=== PATIENT | male | born 1950 | race Caucasian/White ===

== ENCOUNTER 2017-08-27 04:52 | Day surgery (SDC) | payer OTHER, MEDICARE ==
[2017-08-11 10:03] VITALS: BMI 23.1
--- NOTE | 2017-08-27 10:37 | PREOP ---
DATE OF ADMISSION: 08/27/2017 DATE OF DICTATION: 07/15/2017 Patient to be admitted to the [facility] in the near future, date to be determined. HISTORY: A 67-year-old man admitted to the hospital for open repair of a left inguinal hernia with mesh. I had performed the patient's right inguinal hernia repair remotely in 2009. He presents now for open repair of a symptomatic left inguinal hernia. No underlying GI, genitourinary, or respiratory complaints to suggest further predisposition or information. The patient is status post radical prostatectomy and is not felt to be a good candidate for peritoneoscopic hernia surgery. The patient's past medical history is significant for hypertension, hypercholesterolemia. No history of heart disease, diabetes, respiratory or hepatic insufficiency. Past surgical history is significant for open radical prostatectomy 2006, right shoulder surgery 2004, open right inguinal hernia surgery 2009, right knee surgery 2011, left knee surgery 2014. ALLERGIES: None known. CURRENT MEDICATIONS: Labetalol, simvastatin. SOCIAL HISTORY: Negative tobacco. Negative alcohol. FAMILY HISTORY: Mother , history of colon cancer. (Patient's last colonoscopy 2014 approximately). REVIEW OF SYSTEMS: Otherwise nil. PHYSICAL EXAMINATION: Patient examined in erect and supine position. There is an obvious moderate-size, reducible left inguinal hernia. The right groin is intact. No evidence of recurrence. The testes are unremarkable. There is a device and valve in the scrotum which the patient uses to control his urinary incontinence. IMPRESSION: Symptomatic, reducible left inguinal hernia. PLAN: Open reduction and repair of left inguinal hernia with mesh. Indications, alternatives, and possible complications reviewed. Consent obtained. The patient was seen preoperatively by Dr. Aquilino Garcia of the medical service. Please refer to his notes for those details. The patient is strongly opting for surgery at [facility] in [place], as he lives in [place], despite being a patient of Dr. Garcia here in [place]. Additionally, it is difficult for his to travel outside that catchment area. GASPER RIVERO M.D. [id number] cc: Aquilino Garcia MD
[2017-08-27] MEDS ORDERED: ceFAZolin SODIUM 1 GM VIAL ONE (10:53)
[2017-08-27] MEDS ORDERED: BUPIVACAINE HCL/PF 0.5% (5MG/ML) 10 ML VIAL ONE (12:26)
[2017-08-27] MEDS ORDERED: DEXAMETHASONE SOD PHOSPHATE/PF 10 MG/ML SDV ONE (12:31)
[2017-08-27] MEDS ORDERED: ROPIVACAINE HCL 0.5% 30ML VIAL ONE (12:31)
[2017-08-27] MEDS ORDERED: MIDAZOLAM HCL 2 MG/2 ML SINGLE DOSE VIAL ONE ×2 (12:33)
[2017-08-27] MEDS ORDERED: fentaNYL CITRATE 250 MCG/5 ML VIAL ONE (12:50)
[2017-08-27] MEDS ORDERED: PROPOFOL 20 ML ONE (12:50)
[2017-08-27] MEDS ORDERED: DESFLURANE GAS 240 ML BOTTLE IH ONE (12:53)
[2017-08-27] MEDS ORDERED: ROCURONIUM BROMIDE 50 MG/5 ML VIAL ONE (13:00)
[2017-08-27] MEDS ORDERED: LIDOCAINE HCL/PF 2% SDV 5ML VIAL ONE (13:00)
[2017-08-27] MEDS ORDERED: ceFAZolin SODIUM 1 GM VIAL IVPB ONE (13:10)
--- NOTE | 2017-08-27 13:40 | HP ---
DATE OF ADMISSION: 08/27/2017 This is an updated history and physical. Since the previous dictation of July 15, 2017, there has been no significant change. HISTORY: This is a 67-year-old man who presents for open left inguinal hernia with mesh. He has had an open right inguinal hernia previously. He has had a radical prostatectomy, as well. He has also had placement of a device to aid in his urinary incontinence. No underlying GI, , or respiratory complaints to suggest further predisposition of hernia formation. Patient does have a history of hypertension and hypercholesterolemia. There has been no history of heart disease, respiratory or hepatic insufficiency. PAST SURGICAL HISTORY: As described above, and in addition, he has had knee surgery. ALLERGIES: None known. CURRENT MEDICATIONS: Labetalol, simvastatin. SOCIAL HISTORY: Negative for tobacco, negative for alcohol. FAMILY HISTORY: Mother has history of colon cancer, last colonoscopy 2014. REVIEW OF SYSTEMS: Nil. PHYSICAL EXAMINATION: Abdomen: Obvious moderate size reducible left inguinal hernia. Right groin intact, no evidence of recurrence. Testes unremarkable, mildly atrophic bilaterally. Palpable device at the level of the right hemiscrotum. IMPRESSION: Symptomatic, reducible left inguinal hernia, history of contralateral repair, history of prostate cancer. PLAN: Open reduction repair of left inguinal hernia with mesh. Indications, alternatives, possible complications were reviewed. Consent obtained. Patient is to be seen preoperatively by his PMD. Please refer to those notes for those medical details. GASPER RIVERO M.D. [id number] MTDD
[2017-08-27] MEDS ORDERED: GLYCOPYRROLATE 0.2 MG/1 ML VIAL ONE (14:08)
[2017-08-27] MEDS ORDERED: NEOSTIGMINE METHYLSULFATE 0.5 MG/ML - 10 ML MDV ONE (14:08)
[2017-08-27] MEDS ORDERED: BUPIVACAINE HCL/PF (5 MG/ML) 30 ML VIAL IJ ONE ×2 (14:11)
[2017-08-27] MEDS ORDERED: oxyCODONE HCL 5 MG TABLET PO PRN ×2 (14:19→14:24)
[2017-08-27] MEDS ORDERED: ONDANSETRON 4 MG/2 ML VIAL IVPUSH PRN (14:19)
[2017-08-27] MEDS ORDERED: LACTATED RINGERS SOLUTION 1,000 ML IV SCH (14:30)
[2017-08-27 15:14] VITALS: TEMP 97.6
[2017-08-27] MEDS ORDERED: LABETALOL HCL 5 MG/1 ML (100MG/20 ML VIAL) IVPUSH ONE (16:51)
[2017-08-27] MEDS ORDERED: oxyCODONE HCL 5 MG TABLET ONE (18:54)
[2017-08-27 19:48] VITALS: BP 147/96; PULSE 78
--- NOTE | 2017-08-28 13:50 | OP ---
DATE OF OPERATION: 08/27/2017 PREOPERATIVE DIAGNOSIS: Left inguinal hernia. POSTOPERATIVE DIAGNOSIS: Indirect left inguinal hernia. PROCEDURE: Open repair left inguinal hernia with mesh/intermediate wound closure (18 minutes). OPERATING SURGEON: Vargas Lindsey MD DEAN OF WOMEN: None. ANESTHESIA: Serge Pulido MD (general) HISTORY: This is a 67-year-old man who has had a contralateral right inguinal hernia repair. He also has a history of prior radical prostatectomy for carcinoma. He presents for open left inguinal hernia repair with mesh. Indications, alternatives, and possible complications were reviewed. Consent obtained. DESCRIPTION OF PROCEDURE: With the patient in the supine position, and after general anesthesia, the abdomen and left groin were prepped and draped in sterile fashion using chlorhexidine. An 8-cm left groin incision was between the left pubic tubercle and left anterior iliac spine. Incision was deepened into the subcutaneous space. All identified vessels in the subcutaneous space were clamped, divided, and ligated. The external oblique aponeurosis was identified and incised in the direction of its fibers through the external ring. The ilioinguinal nerve was identified and spared. The undersurface of the split external oblique aponeurosis was planed to the level of the pubic tubercle, at which point, a [place] drain was placed around the cord structures. The cord was then skeletonized of its cremasteric fibers. An indirect component was easily identified and mobilized free from its attachment to the remaining cord structures. Sac was mobilized to the level of the preperitoneal fat and inferior epigastric vessels. The sac was opened, found to contain no structures. It was transfixed at its base with 2-0 silk suture material x2. The sac was amputated and sent as specimen. Now directing our attention to the inguinal floor, the transversalis fascia was split throughout its entire length. The preperitoneal tissues were reduced. Davol plug was placed in the preperitoneal space and tacked in place circumferentially with 2-0 Prolene sutures. The transversalis fascia was imbricated in 2 layers over the Davol plug, leaving the Davol plug entirely in the preperitoneal space. This was accomplished with a continuous 2-0 Prolene suture beginning at the pubic tubercle, moving superiorly to recreate the internal ring and returning to the pubic tubercle. An overlying mesh was then fashioned about the entire inguinal floor and tacked in place circumferentially with 2-0 Prolene sutures. The mesh was keyholed superiorly, was wrapped around the plug buttressing the internal ring. The cord and ilioinguinal nerve were then returned to their anatomic positions. The overlying external oblique aponeurosis was closed in a continuous fashion using 3-0 Vicryl suture material. After adequate irrigation and hemostasis, the wound was closed in layers. Scarpas fascia was approximated with interrupted 3-0 chromic suture. Subcutaneous tissues were approximated with interrupted 3-0 plain sutures. Subcuticular layer was approximated using continuous 4-0 Biosyn suture. Prior to complete closure, 10 mL of 0.5% Marcaine was freely instilled in the wound. Dermabond applied. Procedure was terminated. NEEDLE AND INSTRUMENT COUNT: Correct. ESTIMATED BLOOD LOSS: Minimal. SPECIMENS: Hernia sac. DRAINS: None. IMPLANTS: Mesh plug. Patient tolerated the procedure. The procedure was terminated. Kirstin [id number] MTDD
== END 2017-08-27 19:05 | disposition home or self-care (01) ==
LOC: JASU-SURG 04:52
PROVIDERS: ATTEND Surgery
PROC: 0YU60JZ Supplement Left Inguinal Region with Synthetic Substitute, Open Approach (ICD-10-PCS; principal; 2017-08-27 12:00)
DX: K40.90 Unilateral inguinal hernia, without obstruction or gangrene, not specified as recurrent (principal)
CPT/HCPCS: 88302-TC; 94010

== ENCOUNTER 2020-04-25 11:56 | Emergency (ER) | payer OTHER, MEDICARE | END 2020-04-25 12:32 | disposition home or self-care (01) | LOC: JVIRT 11:56 | DX: Z03.818 Encounter for observation for suspected exposure to other biological agents ruled out (principal) | CPT/HCPCS: C9803; G2012-GT; U0003 ==

== ENCOUNTER 2021-01-21 10:50 | Observation (INO) | payer OTHER, MEDICARE ==
[2021-01-21] MEDS ORDERED: MECLIZINE HCL 25 MG TABLET (FP) PO ONE ×2 (11:52→15:44)
[2021-01-21] MEDS ORDERED: METOCLOPRAMIDE HCL INJECTION 10 MG/2 ML VIAL IVPB ONE (11:52)
[2021-01-21] MEDS ORDERED: LACTATED RINGERS SOLUTION 1000 ML INFUS.BAG IV ONE (11:52)
[2021-01-21] MEDS ORDERED: MECLIZINE HCL 25 MG TABLET (FP) ONE ×2 (11:57→15:52)
[2021-01-21] MEDS ORDERED: METOCLOPRAMIDE HCL INJECTION 10 MG/2 ML VIAL ONE (11:58)
[2021-01-21 12:13] LABS: BASO % 0.4 % (0-2.0); HEMATOCRIT 39.8 % (35.4-49); HEMOGLOBIN 13.4 GM/dL (11.7-16.9); LYMPH % 7.5 % (8-40); MCH 28.4 pg (25.7-33.7); MCHC 33.7 g/dl (32.0-35.9); MEAN CELL VOLUME 84.2 fl (80-96); MEAN PLT VOLUME 10.1 fl (7.5-11.1); MONO % 5.9 % (3.8-10.2); NEUT % 85.2 % (42.8-82.8); PLATELET COUNT 155 10^3/uL (134-434); RBC 4.72 M/mm3 (4.00-5.60); RDW 13.8 % (11.9-15.9); WHITE BLOOD COUNT 10.7 K/mm3 (4.0-10.0)
[2021-01-21 12:34] LABS: CHLORIDE 108 mmol/L (98-107); SODIUM 140 mmol/L (136-145)
[2021-01-21 12:37] LABS: ALBUMIN 3.8 g/dl (3.4-5.0); CALCIUM 9.6 mg/dL (8.5-10.1)
[2021-01-21 12:38] LABS: ANION GAP 3 MMOL/L (8-16); BLOOD UREA NITROGEN 22.1 mg/dL (7-18); CO2 30 mmol/L (21-32); GLUCOSE,RANDOM 122 mg/dL (74-106); LIPASE 146 U/L (73-393)
[2021-01-21 12:40] LABS: CHOLESTEROL 188 mg/dL (50-200); CREATININE 1.4 mg/dL (0.55-1.3); SGOT/AST 31 U/L (15-37); TRIGLYCERIDES 135 mg/dL (0-150)
[2021-01-21 12:41] LABS: BILIRUBIN,TOTAL 0.5 mg/dL (0.2-1); LDL CHOLESTEROL (ONLY SJRH) 113 mg/dL (5-100)
[2021-01-21 12:42] LABS: ALK PHOS 75 U/L (45-117); TOT PROT 7.8 g/dl (6.4-8.2)
[2021-01-21 12:43] LABS: HDL CHOLESTEROL 40 mg/dL (40-60)
[2021-01-21 13:09] LABS: SGPT/ALT 25 U/L (13-61)
[2021-01-21] MEDS ORDERED: diazePAM 5 MG TABLET PO ONE (13:45)
[2021-01-21 13:50] LABS: EPI CELLS 3 /uL (0-25.1); HYALINE CASTS 1 /uL (0-3.1); URINE APPEARANCE CLEAR; URINE BACTERIA 2 /uL (0-1359); URINE BILIRUBIN NEGATIVE (NEGATIVE); URINE COLOR YELLOW; URINE GLUCOSE (UA) NEGATIVE (NEGATIVE); URINE KETONE NEGATIVE (NEGATIVE); URINE LEUK ESTERASE NEGATIVE (NEGATIVE); URINE NITRITE NEGATIVE (NEGATIVE); URINE PROTEIN 1+ (NEGATIVE); URINE RBC 8 /uL (0-23.9); URINE UROBILINOGEN 0.2 mg/dL (0.2-1.0); URINE WBC 2 /uL (0-25.8)
[2021-01-21] MEDS ORDERED: diazePAM 5 MG TABLET ONE (14:01)
[2021-01-21] MEDS ORDERED: ONDANSETRON 4 MG/2 ML VIAL IVPUSH ONE (15:44)
[2021-01-21] MEDS ORDERED: ONDANSETRON 4 MG/2 ML VIAL ONE (15:52)
[2021-01-21] MEDS ORDERED: ASPIRIN 81 MG CHEWABLE TABLETS PO ONE (15:53)
[2021-01-21] MEDS ORDERED: ASPIRIN 81 MG CHEWABLE TABLETS ONE (16:02)
[2021-01-21] MEDS ORDERED: MECLIZINE HCL 25 MG TABLET (FP) PO PRN (17:03)
[2021-01-21] MEDS: predniSONE 20 MG TABLET (UD) PO SCH (19:30)
[2021-01-21] MEDS ORDERED: predniSONE 20 MG TABLET (UD) ONE (20:27)
[2021-01-22 04:01] VITALS: BMI 21.2
[2021-01-22 08:49] LABS: HEMOGLOBIN 12.9 GM/dL (11.7-16.9); MCH 28.3 pg (25.7-33.7); MEAN CELL VOLUME 83.3 fl (80-96); PLATELET COUNT 159 10^3/uL (134-434); RBC 4.57 M/mm3 (4.00-5.60); RDW 13.7 % (11.9-15.9); WHITE BLOOD COUNT 8.3 K/mm3 (4.0-10.0)
[2021-01-22 09:17] LABS: ALBUMIN 3.4 g/dl (3.4-5.0); BLOOD UREA NITROGEN 22.1 mg/dL (7-18); CALCIUM 8.9 mg/dL (8.5-10.1)
[2021-01-22 09:20] LABS: CREATININE 1.3 mg/dL (0.55-1.3)
[2021-01-22 09:22] LABS: BILIRUBIN,TOTAL 0.5 mg/dL (0.2-1)
[2021-01-22] MEDS ORDERED: ASPIRIN 81 MG CHEWABLE TABLETS PO SCH (10:00)
[2021-01-22] MEDS ORDERED: ENOXAPARIN NA (PORCINE) 40 MG/0.4 ML DISP.SYRIN SQ SCH (10:00)
[2021-01-22 11:06] LABS: ANISOCYTOSIS 1+; MACROCYTOSIS 0; PLATELET ESTIMATE DECREASED
[2021-01-22] MEDS: predniSONE 20 MG TABLET (UD) PO SCH (11:18)
[2021-01-22 15:47] VITALS: BP 154/87; PULSE 75; TEMP 98.2
== END 2021-01-22 17:37 | disposition home or self-care (01) ==
LOC: JER 10:50 → JERBED 15:57 → J4W 01-22 02:06
PROC: 3E023GC Introduction of Other Therapeutic Substance into Muscle, Percutaneous Approach (ICD-10-PCS; principal; 2021-01-21)
PROC: 3E033GC Introduction of Other Therapeutic Substance into Peripheral Vein, Percutaneous Approach (ICD-10-PCS; 2021-01-21)
PROC: 3E0337Z Introduction of Electrolytic and Water Balance Substance into Peripheral Vein, Percutaneous Approach (ICD-10-PCS; 2021-01-21)
DX: H81.10 Benign paroxysmal vertigo, unspecified ear (principal); I10 Essential (primary) hypertension; E78.5 Hyperlipidemia, unspecified; Z85.46 Personal history of malignant neoplasm of prostate; Z88.8 Allergy status to other drugs, medicaments and biological substances; Z29.9 Encounter for prophylactic measures, unspecified
CPT/HCPCS: 36415; 70450-TC; 70551-TC; 71045-TC-FY; 80053; 80061; 81003; 82550; 82553; 83036; 83690; 84443; 84484; 85025; 86780; 87086; 93005; 93010; 93880-TC; 96372; 96374; 96375; 97116-GP; 99285-25; C9803; G0378; U0003; U0005

== ENCOUNTER 2024-07-12 13:59 | Emergency (ER) | payer OTHER, MEDICARE ==
[2024-07-12 14:08] VITALS: BP 142/82; PULSE 65; RESP 16; TEMP 98.2; BMI 21.6
[2024-07-12] MEDS ORDERED: MECLIZINE HCL 25 MG TABLET (FP) PO ONE (14:41)
[2024-07-12] MEDS ORDERED: MECLIZINE HCL 25 MG TABLET (FP) ONE (15:09)
[2024-07-12] MEDS ORDERED: ONDANSETRON 4 MG/2 ML VIAL ONE (15:10)
[2024-07-12] MEDS: MECLIZINE HCL 25 MG TABLET (FP) PO ONE (15:18)
[2024-07-12] MEDS: LACTATED RINGERS SOLUTION 1000 ML INFUS.BAG IV ONE (15:19)
[2024-07-12] MEDS: ONDANSETRON 4 MG/2 ML VIAL IVPUSH ONE (15:19)
[2024-07-12 15:24] LABS: BASO % 0.5 % (0-2.0); EOS % 1.1 % (0-4.5); HEMATOCRIT 37.6 % (35.4-49); HEMOGLOBIN 12.4 GM/dL (11.7-16.9); LYMPH % 6.8 % (8-40); MCH 26.9 pg (25.7-33.7); MCHC 32.8 g/dl (32.0-35.9); MEAN PLT VOLUME 10.1 fl (7.5-11.1); MONO % 6.4 % (3.8-10.2); NEUT % 85.2 % (42.8-82.8); PLATELET COUNT 152 10^3/uL (134-434); RBC 4.59 M/mm3 (4.00-5.60); RDW 14.5 % (11.9-15.9); WHITE BLOOD COUNT 9.2 K/mm3 (4.0-10.0)
[2024-07-12 15:30] LABS: INR 1.08 (0.83-1.09); PROTHROMBIN TIME (PATIENT) 11.9 SEC (9.7-13.0)
[2024-07-12 15:32] LABS: ACTIVATED PTT 33.1 SECONDS (25.2-36.5)
[2024-07-12 15:43] LABS: BLOOD UREA NITROGEN 21.4 mg/dL (7-18); CALCIUM 9.7 mg/dL (8.5-10.1)
[2024-07-12 15:44] LABS: ALBUMIN 3.6 g/dl (3.4-5.0); MAGNESIUM 2.1 mg/dL (1.8-2.4)
[2024-07-12 15:47] LABS: CREATININE 1.5 mg/dL (0.55-1.3)
[2024-07-12 15:48] LABS: BILIRUBIN,TOTAL 0.4 mg/dL (0.2-1); TOT PROT 7.4 g/dl (6.4-8.2)
[2024-07-12 17:52] LABS: HIV INTERPRETATION NEGATIVE (NEGATIVE)
== END 2024-07-12 17:01 | disposition home or self-care (01) ==
LOC: JER 13:59
PROC: 3E033GC Introduction of Other Therapeutic Substance into Peripheral Vein, Percutaneous Approach (ICD-10-PCS; principal; 2024-07-12)
DX: R42 Dizziness and giddiness (principal); R11.0 Nausea
CPT/HCPCS: 36415; 71045-TC-FY; 80053; 83735; 84484; 85025; 85610; 85730; 86803; 86850; 86900; 86901; 87389; 93005; 93010; 96374; 99285-25